=== PATIENT | male | born 1980 | race Caucasian/White ===

== ENCOUNTER 2024-01-25 06:54 | Emergency (ER) | payer SELFPAY ==
[2024-01-25 07:05] VITALS: BP 128/98; PULSE 88; RESP 18; TEMP 98.4; BMI 23.4
[2024-01-25] MEDS ORDERED: KETOROLAC TROMETHAMINE 30 MG/1 ML VIAL ONE (07:36)
[2024-01-25] MEDS: KETOROLAC TROMETHAMINE 15 MG/ML VIAL IVPUSH ONE (07:39)
[2024-01-25 07:49] LABS: HEMATOCRIT 46.2 % (35.4-49); HEMOGLOBIN 15.4 G/dL (11.7-16.9); MCH 29.6 pg (25.7-33.7); MCHC 33.2 g/dl (32.0-35.9); MEAN CELL VOLUME 89.1 fl (80-96); MEAN PLT VOLUME 8.8 fl (7.5-11.1); PLATELET COUNT 250.1 10^3/uL (134-434); RBC 5.18 10^6/uL (4.00-5.60); RDW 13.5 % (11.9-15.9); WHITE BLOOD COUNT 6.9 10^3/uL (4.0-10.8)
[2024-01-25 07:57] LABS: ALBUMIN 5.1 g/dl (3.4-5.0); BILIRUBIN,TOTAL 0.4 mg/dl (0.2-1); CALCIUM 9.8 mg/dl (8.5-10.1); CREATININE 0.9 mg/dl (0.6-1.3); POTASSIUM 3.8 mmol/L (3.5-5.1); TOT PROT 7.9 g/dl (6.4-8.2)
[2024-01-25 07:59] LABS: PLATELET ESTIMATE ADEQUATE
== END 2024-01-25 08:15 | disposition home or self-care (01) ==
LOC: FER 06:54
PROC: 3E0333Z Introduction of Anti-inflammatory into Peripheral Vein, Percutaneous Approach (ICD-10-PCS; principal; 2024-01-25)
DX: R07.89 Other chest pain (principal)
CPT/HCPCS: 36415; 71046-TC-FY; 80053; 84484; 85027; 93005; 99285-25